=== PATIENT | female | born 1975 ===

== ENCOUNTER → 2018-04-28 | Outpatient (CLI) | payer OTHER ==
--- NOTE | 2018-04-28 15:46 | Diagnostic Imaging Report ---
INDICATION: Vaginal spotting. FINDINGS: There is a cystic structure noted within the endometrium suggestive of a gestational sac. Dimensions are approximately 2.4 x 1.6 x 2.0 cm. No pole or yolk sac is seen at this time. No perigestational sac hemorrhage is seen. Right ovary is reportedly surgically absent. Left ovary contains a 13 mm x 19 mm cyst. There is blood flow to the left ovary. No free fluid is seen. IMPRESSION: Intrauterine gestational sac of approximately 7 weeks without evidence of pole or yolk sac. Follow-up ultrasound and/or correlation with serial beta-hCG levels could be performed to evaluate viability. Dictated by: Dictated on workstation # [id number]
== END ==
LOC: RAD 14:24
PROVIDERS: ATTEND Obstetrics & Gynecology
DX: O20.9 Hemorrhage in early pregnancy, unspecified (principal); Z3A.01 Less than 8 weeks gestation of pregnancy
CPT/HCPCS: 76817

== ENCOUNTER 2018-04-29 11:38 | Emergency (ER) | payer OTHER ==
[~2018-04-29] VITALS: Ht 167.6 cm; Wt 54.4 kg
--- NOTE | 2018-04-29 12:19 | ED GU-Female ---
General Stated Complaint: VAGINAL BLEEDING; 10 WKS Source: patient Exam Limitations: no limitations History of Present Illness Date Seen by Provider: Apr 29, 2018 Time Seen by Provider: 12:00 Initial Comments The patient is a 42 year old female who presents to the emergency room with complains of vaginal bleeding that started at 0630 this morning. She is approximately ten weeks and had an ultrasound yesterday and was told that the did not find a heart beat and also did blood work. She reports that when the bleeding started she passed a large "clump of tissue" and the bleeding was heavy at the time but has slowed down over morning. She sees Dr. Jacobo and has a follow up appointment tomorrow to recheck blood work. Timing/Duration: this morning Severity/Quality: mild, cramping Location: suprapubic Associated Symptoms: denies symptoms Allergies and Home Medications Patient Home Medication List Home Medication List Reviewed: Yes Review of Systems Review of Systems Constitutional: no symptoms reported, see HPI Genitourinary: see HPI, other (vaginal bleeding) : Yes All Other Systemes Reviewed Negative Unless Noted: Yes Past Nqpvufq-Xqsjxx-Gawrec Hx Past Med/Social Hx: Reviewed Nursing Past Med/Soc Hx Family Medical History Reviewed Nursing Family Hx Physical Exam Vital Signs Vital Signs - First Documented 04/29/18 13:41 Temp 97.9 Pulse 93 Resp 12 B/P (MAP) 145/72 (96) Pulse Ox 99 Capillary Refill : Height, Weight, BMI Height: '" Weight: lbs. oz. kg; BMI Method: General Appearance: WD/WN, no apparent distress Cardiovascular: normal peripheral pulses, regular rate, rhythm, no edema, no gallop, no JVD, no murmur Respiratory: chest non-tender, lungs clear, normal breath sounds, no respiratory distress, no accessory muscle use, respiratory distress Gastrointestinal: normal bowel sounds, non tender, soft, no organomegaly, no pulsatile mass, abnormal bowel sounds Extremities: normal capillary refill Neurologic/Psychiatric: alert, normal mood/affect, oriented x 3 Skin: normal color, warm/dry Progress/Results/Core Measures Suspected Sepsis SIRS Temperature: Pulse: Respiratory Rate: Blood Pressure / Mean: Results/Orders Lab Results My Orders Vital Signs/I&O Capillary Refill : Progress Note : Time: 14:00 Progress Note I have seen and evaluated the patient. I have discussed the lab results with the patient and Dr. Jacobo. She agrees with plan of care, plans for follow up with Dr. Jacobo tomorrow, return precautions were given. Diagnostic Imaging Diagonstic Imaging: Ultrasound Plain Films/CT/US/NM/MRI: other (transvaginal ultrasound) Comments NAME: RA[facility]BS [facility] REC#: [id number] PT STATUS: REG CLI : 1975 PHYSICIAN: PAIGE JACOBO DO ADMIT DATE: 04/28/18/RAD Signed Date of Exam: 04/28/18 US OB TRANSVAGINAL [id number] INDICATION: Vaginal spotting. FINDINGS: There is a cystic structure noted within the endometrium suggestive of a gestational sac. Dimensions are approximately 2.4 x 1.6 x 2.0 cm. No pole or yolk sac is seen at this time. No perigestational sac hemorrhage is seen. Right ovary is reportedly surgically absent. Left ovary contains a 13 mm x 19 mm cyst. There is blood flow to the left ovary. No free fluid is seen. IMPRESSION: Intrauterine gestational sac of approximately 7 weeks without evidence of pole or yolk sac. Follow-up ultrasound and/or correlation with serial beta-hCG levels could be performed to evaluate viability. Dictated by: Dictated on workstation # [id number] Dict: 04/28/18 1537 Trans: 04/28/18 1604 Interpreted by: EMERALD MYERS MD Electronically signed by: EMERALD MYERS MD 04/28/18 1604 Reviewed: Reviewed by Me Departure Impression Primary Impression: Miscarriage, threatened, early Disposition: 01 HOME, SELF-CARE Condition: Stable/Unchanged Departure-Patient Inst. Decision time for Depature: 14:14 Referrals: NO,LOCAL PHYSICIAN (PCP) Primary Care Physician PAIGE JACOBO DO (Family) Primary Care Physician Patient Instructions: Miscarriage (DC) Add. Discharge Instructions: You have an appointment tomorrow afternoon at 2:[address] Jacobo's office. Be sure to keep this appointment. Tylenol as directed by the bottle for pain relief. Return back to the emergency room should your vaginal bleeding increase or become worse. Follow-up with her primary care provider within 1 week for recheck. Work/School Note: School/Childcare Release Date Seen in the Emergency Department: Apr 29, 2018 Time Dismissed from Emergency Department: 14:18 Return to School: May 01, 2018 Restrictions: No Restrictions MANUEL REESE Apr 29, 2018 12:19
[2018-04-29 12:22] LABS: BASOPHILS % (AUTO) 1 % (0-10); EOSINOPHILS # (AUTO) 0.2 10^3/uL (0.0-0.3); EOSINOPHILS % (AUTO) 2 % (0-10); HEMATOCRIT 37 % (35-52); HEMOGLOBIN 12.5 G/DL (11.5-16.0); LYMPHOCYTES # (AUTO) 2.5 X 10^3 (1.0-4.0); LYMPHOCYTES % (AUTO) 30 % (12-44); MEAN CORPUSCULAR HEMOGLOBIN 33 PG (25-34); MEAN CORPUSCULAR HGB CONC 34 G/DL (32-36); MEAN CORPUSCULAR VOLUME 96 FL (80-99); MEAN PLATELET VOLUME 10.1 FL (7.4-10.4); MONOCYTES # (AUTO) 0.4 X 10^3 (0.0-1.0); MONOCYTES % (AUTO) 5 % (0-12); NEUTROPHILS # (AUTO) 5.3 X 10^3 (1.8-7.8); NEUTROPHILS % (AUTO) 63 % (42-75); PLATELET COUNT 290 10^3/uL (130-400); RED BLOOD COUNT 3.82 10^6/uL (4.35-5.85); RED CELL DISTRIBUTION WIDTH 11.9 % (10.0-14.5); WHITE BLOOD COUNT 8.4 10^3/uL (4.3-11.0)
[2018-04-29 12:52] LABS: ALANINE AMINOTRANSFERASE 13 U/L (0-55); ALBUMIN 4.5 GM/DL (3.2-4.5); ALKALINE PHOSPHATASE 43 U/L (40-136); BILIRUBIN,TOTAL 0.6 MG/DL (0.1-1.0); BUN/CREATININE RATIO 11; CALCIUM 9.7 MG/DL (8.5-10.1); CARBON DIOXIDE 23 MMOL/L (21-32); CHLORIDE 108 MMOL/L (98-107); CREATININE SERUM 0.74 MG/DL (0.60-1.30); GFR ESTIMATED > 60; GLUCOSE 123 MG/DL (70-105); SODIUM 140 MMOL/L (135-145); TOTAL PROTEIN 7.6 GM/DL (6.4-8.2)
[2018-04-29 12:54] LABS: BILIRUBIN,URINE NEGATIVE (NEGATIVE); CLARITY,URINE BLOODY; COLOR,URINE RED; GLUCOSE, URINE (UA) NEGATIVE (NEGATIVE); KETONES,URINE NEGATIVE (NEGATIVE); LEUKOCYTE ESTERASE ,URINE NEGATIVE (NEGATIVE); NITRITE,URINE NEGATIVE (NEGATIVE); PH,URINE 7 (5-9); PROTEIN,URINE 4+ (NEGATIVE); UROBILINOGEN,URINE NORMAL (NORMAL)
[2018-04-29 13:21] LABS: BACTERIA,URINE NEGATIVE /HPF; RBC,URINE TNTC /HPF
[2018-04-29 14:21] VITALS: BP 145/72
== END 2018-04-29 14:21 | disposition home or self-care (01) ==
LOC: EDUNIT# 11:38 → ER 11:40
DX: O20.0 Threatened abortion (principal); Z3A.10 10 weeks gestation of pregnancy
CPT/HCPCS: 36415; 80053; 81000; 84702; 85025; 86900; 86901; 99282